=== PATIENT | male | born 1950 | race Caucasian/White ===

== ENCOUNTER → 2024-07-18 13:59 | Outpatient (REF) | payer OTHER, SELFPAY | LOC: HWEVLT 13:59 | PROVIDERS: ATTENDING PHYSICIAN Radiology Diagnostic Radiology | DX: I83.891 Varicose veins of right lower extremity with other complications (principal) | CPT/HCPCS: 93971 ==

== ENCOUNTER → 2024-07-26 14:12 | Outpatient (REF) | payer OTHER, SELFPAY | LOC: HWEVLT 14:12 | PROVIDERS: ATTENDING PHYSICIAN Radiology Diagnostic Radiology | DX: I83.891 Varicose veins of right lower extremity with other complications (principal) | CPT/HCPCS: 93971 ==

== ENCOUNTER → 2024-09-27 09:26 | Outpatient (REF) | payer OTHER, SELFPAY | LOC: HWEVLT 09:26 | PROVIDERS: ATTENDING PHYSICIAN Radiology Vascular & Interventional Radiology | DX: I83.891 Varicose veins of right lower extremity with other complications (principal) | CPT/HCPCS: 36478; C1769 ==

== ENCOUNTER → 2024-10-11 11:16 | Outpatient (REF) | payer OTHER, SELFPAY | LOC: HWEVLT 11:16 | PROVIDERS: ATTENDING PHYSICIAN Radiology Diagnostic Radiology | DX: I83.891 Varicose veins of right lower extremity with other complications (principal) | CPT/HCPCS: 93971 ==